=== PATIENT | male | born 1970 | race Caucasian/White ===

== ENCOUNTER 2024-08-29 07:20 | Day surgery (SDC) | payer OTHER, SELFPAY ==
[2024-08-28 11:18] VITALS: BMI 27.1
[2024-08-28 12:14] LABS: Basophils # (Auto) 0.1 Thou/mm3 (0.0-0.2); Basophils % (Auto) 1 % (0-2.5); Eosinophils # (Auto) 0.4 Thou/mm3 (0.0-0.5); Eosinophils % (Auto) 6 % (0-10); Hematocrit 49.6 % (41.0-53.0); Hemoglobin 17.7 g/dL (13.5-16.0); Immature Granulocytes % (Auto) 0 % (0-0); Immature Granulocytes Auto 0.02 Thou/mm3 (0.00-0.00); Lymphocytes # (Auto) 2.2 Thou/mm3 (1.0-4.8); Lymphocytes % (Auto) 30 % (10-50); Mean Corpuscular HGB Conc 35.7 g/dl (31.0-37.0); Mean Corpuscular Hemoglobin 30.6 pg (25.0-35.0); Mean Corpuscular Volume 86 fL (80-100); Monocytes # (Auto) 0.6 Thou/mm3 (0.0-0.8); Monocytes % (Auto) 8 % (0-12); Neutrophils # (Auto) 4.1 Thou/mm3 (1.8-7.7); Neutrophils % (Auto) 55 % (37-80); Nucleated Red Blood Cell % 0 /100 WBC (0); Platelet Count 220 Thou/mm3 (140-440); Red Blood Count 5.78 Miln/mm3 (4.50-5.90); White Blood Count 7.5 Thou/mm3 (3.8-10.6)
[2024-08-28 12:20] LABS: Partial Thromboplastin Time 25.6 Seconds (22.0-36.0); Prothrombin Time 10.8 Seconds (9.0-12.2)
[2024-08-28 12:21] LABS: Alanine Aminotransferase 106 U/L (10-49); Albumin/Globulin Ratio 1.9 (1.2-2.2); Alkaline Phosphatase 104 U/L (46-116); Anion Gap 7 (7-16); Aspartate Amino Transferase 45 U/L (0-34); BUN/Creatinine Ratio 14 Ratio (12-20); Bilirubin,Total 0.8 mg/dL (0.3-1.2); Blood Urea Nitrogen 14 mg/dL (9-23); Calcium 9.7 mg/dL (8.3-10.6); Calcium (Corrected) 9.7 mg/dL (8.5-10.1); Carbon Dioxide 27.5 mMol/L (20.0-31.0); Chloride 105 mMol/L (98-107); Estimated Creatinine Clearance 81.7 mL/min (>60); Globulin 2.6 gm/dL (2.3-3.5); Glucose 95 mg/dL (74-106); Osmolality,Calculated 278 (275-295); Potassium 4.1 mMol/L (3.4-5.1); Sodium 139 mMol/L (136-145); Total Protein 7.6 gm/dL (5.7-8.2); eGFR > 60 See Note
[2024-08-29] VITALS (7 sets, daily range): BP systolic 104–177; BP diastolic 75–104; PULSE 69–82; RESP 14–20; TEMP 36.1–37; O2SAT 93–97; BMI 26.7
[2024-08-29] MEDS: RINGERS LACTATED 1000 ML 1,000 ML 20 ML IV (07:53)
--- NOTE | 2024-08-29 10:55 | SUR.PHASEI ---
1055: Pt. wakes to name then drifts back to sleep, vitals stable, breathing unlabored, no complaint of pain or nausea, dressing to right foot CDI, no active bleed noted, report received from Rene LAWRENCE and MD Gaviria.
--- NOTE | 2024-08-29 11:06 | PD.SUROPNT ---
Date of Procedure 08/29/24 Pre Op Diagnosis soft tissue mass right foot on the lateral aspect possibly ganglion Post Op Diagnosis Same Procedure Excision of the soft tissue mass possibly ganglion from the right foot lateral aspect Findings Patient was found to have well-circumscribed 2 cm mass which had the appearance of a ganglion but could also be benign mass of unknown origin Procedure Description After the patient was brought to the operating room LMA anesthesia was administered. Timeout was performed. Then a tourniquet was applied over the right thigh and he was draped in a sterile manner over the right foot. Then the right lower extremity was elevated and the veins were emptied and tourniquet was inflated up to 300 mmHg. Then I made a incision on the lateral aspect of the right foot in a vertical fashion along with the skin crease. Using Vilma retractors I dissected out this mass which appears to be a solid mass and not containing any viscid fluid we normally see in ganglion. It is also not attached to the tendon sheath. It could be an isolated soft tissue mass and the definite etiology is not known. The mass was dissected out without any difficulty and the tourniquet was released.. I cauterized some of the bleeding vessels and the wound was approximated with interrupted 5-0 nylon sutures. Dressing was then applied with Adaptic and 4 x 4 gauze and Amber roll. Patient tolerated procedure well. Total tourniquet time was about 5 minutes Anesthesia other (General LMA) Pathology / specimen Other (Mass right foot) Estimated Blood Loss 10 Surgeon Mere More MD Surgical Staff Operation Date: 08/29/24 09:50 Case Staff Anesthesiologist: Obed Gaviria
--- NOTE | 2024-08-29 11:48 | SUR.PHASEII ---
Pt. AAOx4, vitals stable, breathing unlabored, no complaint of pain or nausea, dressing to right foot CDI, no active bleed noted, pt. tolerated sips of water well, pt. ambulated to wheelchair with steady gait and no assist, no complications. Gave discharge instructions to the pt. and his ride, both verbalized understanding and had no further questions. Pt. left with all personal belongings.
== END 2024-08-29 11:48 | disposition home or self-care (01) ==
PROVIDERS: PCP Family Medicine; Referring Provider Surgery; Visit Provider Surgery
PROC: (CPT 28090; principal; 2024-08-29 09:50)
DX: M67.471 Ganglion, right ankle and foot (principal)
CPT/HCPCS: 28090; 36415; 80053; 85025; 85610; 85730; A4217; A4649; J1885; J2250; J2405; J2704; J2765; J3010; J3490; J7120